=== PATIENT | female | born 1955 | race African-American/Black ===

== ENCOUNTER 2017-05-10 09:46 | Inpatient (IN) ==
[2017-05-10] MEDS ORDERED: DUONEB (A & A) INH ONE (10:27)
[2017-05-10 10:32] LABS: BASO% 0.2 % (0.0-0.8); EOS# 0.01 X1000 (0.0-0.7); EOS% 0.1 % (0.0-10.0); HEMATOCRIT 32.8 % (37.0-47.0); LYMPH# 0.65 X1000 (1.2-3.4); LYMPH% 5.8 % (20.5-51.1); MANUAL DIFF NEEDED? NO; MCH 34.7 PG (27-31); MCHC 33.5 g/dL (33-37); MCV 103.5 FL (81-99); MONO# 0.46 X1000 (0.11-0.59); MONO% 4.1 % (1.7-9.3); MPV 11.4 FL (7.4-10.4); NEUT% 89.8 % (42.2-75.2); PLT 59 X1000 (130-400); RBC 3.17 XMIL (4.2-5.4)
[2017-05-10 10:40] LABS: INR 1.05; PROTIME 11.1 Seconds (9.2-11.7)
--- NOTE | 2017-05-10 10:55 | ED EKG INTERP ---
This chart was entered by Flakita Sims Scribe, acting as scribe for Evi Marshall MD. EKG Interpretation - EKG Time of EKG reading by physician:: 09:54 EKG Read and Signed by:: Evi Marshall EKG Interpretation (*Must complete 3 of following elements*): Normal Rate: 93 (minimal voltage criteria for LVh, may be normal variant) Rhythm: NSR Attestation - Physician/ DIANA Attestation The physician spent face to face time with patient:: Yes Advanced Practice Provider documentation review:: Supervising physician onsite and consulted in the evaluation and care of this patient. The physician did have a face to face encounter with the patient. This chart was documented by the indicated scribe, (Flakita Sims Scribe) and accurately reflects the services I performed and decisions made by me, Evi Marshall MD, as attested by the provider's signature.
[2017-05-10 11:00] LABS: ALBUMIN 3.6 g/dL (3.5-5.0); CALCIUM 10.5 mg/dL (8.8-10.2); MAGNESIUM 2.3 mg/dL (1.5-2.7); POTASSIUM 3.9 mmol/L (3.5-5.1); TOTAL BILIRUBIN 0.9 mg/dL (0.20-1.00); TOTAL PROTEIN 8.3 g/dL (6.3-8.3)
--- NOTE | 2017-05-10 11:04 | Diag Imaging Result Doc PS360 ---
EXAM: CHEST-2 VIEWS HISTORY: CP TECHNIQUE: Two views COMPARISON: 07/26/2015 FINDINGS: The lungs are well expanded. The heart is not enlarged. The vessels are not distended. There are no infiltrates. No pleural effusions. No change in the right jugular portacatheter. No pneumothorax. IMPRESSION: Stable chest Electronically signed by Michael Yang 05/10/2017 11:02 AM
--- NOTE | 2017-05-10 11:12 | PROVIDER DOCUMENTATION ---
HPI-Respiratory General - General Chief Complaint: Shortness of Breath Stated Complaint: chest pain Time Seen by Provider: 05/10/17 10:10 Source: patient, family Allergies/Adverse Reactions: Patient Allergies Allergy/AdvReac Type Severity Reaction Status Date / Time lisinopril Allergy Severe Unknown Verified 01/20/15 13:39 sulfamethoxazole Allergy Severe Unknown Verified 01/20/15 13:39 [From Bactrim] trimethoprim [From Bactrim] Allergy Severe Unknown Verified 01/20/15 13:39 Sulfa (Sulfonamide Allergy Unknown Verified 01/20/15 13:39 Antibiotics) doxorubicin HCl pegylated AdvReac Intermediate RASH Verified 01/20/15 13:39 lipo... * [From Doxil] Home Medications: Home Medication List Medication Instructions Recorded Confirmed Last Taken Type ATORVAstatin [Lipitor] 20 mg PO DAILY 11/15/13 01/20/15 01/19/15 History Albuterol Sulfate [Ventolin Hfa] 90 puff IH BID 11/15/13 01/20/15 11/14/14 09: 00 History Cyclobenzaprine [Flexeril] 10 mg PO TID 11/15/13 01/20/15 01/20/15 History Dronabinol [Marinol] 2.5 mg PO BID 11/15/13 01/20/15 01/20/15 History Fluoxetine [Prozac] 20 mg PO DAILY 11/15/13 01/20/15 11/14/14 09:00 History Fluticasone/Salmet 250/50 INH 1 puff INH RTBID 11/15/13 01/20/15 11/14/14 09:00 History [Advair 250/50 Diskus] Gabapentin [Neurontin] 600 mg PO TID 11/15/13 01/20/15 01/20/15 History Insulin Human Regular [Humulin R] 100 unit SUBQ AC + HS 11/15/13 01/20/15 09:00 History Temazepam [Restoril] 15 mg PO QHS 11/15/13 01/20/15 01/19/15 History Acyclovir 400 mg PO BID 11/14/14 01/20/15 01/20/15 History Amlodipine [Norvasc] 10 mg PO DAILY 11/14/14 01/20/15 11/14/14 09:00 History Calcium Carbonate/Vitamin D3 1 each PO TID 11/14/14 01/20/15 01/20/15 History [Calcium 600 + Vit D Caplet] Cholecalciferol (Vitamin D3) 1,000 unit PO DAILY 11/14/14 01/20/15 01/20/15 History [Vitamin D3] Folic Acid 1 mg PO DAILY 11/14/14 01/20/15 01/20/15 History Nystatin 100,000 unit VG TID 11/14/14 01/20/15 01/19/15 History Phosphorus #1 [Phospha 250 Neutral 4 tab PO TID 11/14/14 01/20/15 01/20/15 History Tablet] Potassium Chloride E.r. [Klor-Con] 20 meq PO DAILY 11/14/14 01/20/15 11/14/14 09 :00 History Carvedilol 25 mg PO DAILY 01/20/15 01/20/15 01/20/15 History - History of Present Illness-Resp Nature of Presenting Problem: Pt presents to ER per family with c/o progressively worsening midsternal chest pain described as 'pressure' accompanied by some sob since last p.m. Reports pain appears to 'come and go' with no change upon exertion. No radiation. Denies diaphoresis and n/v. Also reports recent productive cough with 'green' phelgm. No known fever. Denies n/v, but reports some recent decreased appetite. HX Myeloma. Quality of Pain: reports: pressure Severity in ED: reports: moderate Onset/Duration: reports: last night Timing: reports: still present Context: reports: other (hx myeloma with recent productive cough.) Exposure: reports: other (unknown exposure) Cough Quality/Degree: reports: moderate, productive cough, other ('green') Episode Frequency: occasional episodes Current Respiratory Medication Therapy: Initiated see nurses note Modifying Factors: improves with: nothing Associated Symptoms: reports: cough (productive), shortness of breath Similar Symptoms Previously?: No Recently seen or treated by another doctor?: No Review of Systems - Adult - REVIEW OF SYSTEMS - ADULT Constitutional: reports: see HPIrobb. denies: fever Eyes: reports: no symptoms reported. denies: blurred vision, double vision Ears, Nose, Mouth & Throat: reports: no symptoms reported. denies: ear pain, nose pain, throat pain Cardiovascular: reports: see HPI, chest pain (midsternal 'pressure'). denies: orthopnea Respiratory: reports: cough (productive), shortness of breath Gastrointestinal: reports: nausea, other (decreased appetite) Genitourinary: reports: no symptoms reported. denies: dysuria, hematuria Musculoskeletal: reports: no symptoms reported. denies: bone pain, joint pain Integumentary: reports: no symptoms reported. denies: itching, rash Neurological: reports: no symptoms reported. denies: numbness, paresthesia Psychiatric: reports: no symptoms reported. denies: anxiety, emotional problems Endocrine: reports: no symptoms reported. denies: cold intolerance, heat intolerance Hematologic/Lymphatic: reports: no symptoms reported. denies: blood clots, low blood count Allergic/Immunologic: reports: no symptoms reported. denies: allergic reactions , food allergy All Other Systems: Reviewed and Negative Past History - Adult - PAST MEDICAL HISTORY-ADULT Review of Records: reports: Old Records Reviewed, Nursing Assessment Review, Medications Reviewed, Social history reviewed & non-contributory. Major Childhood Illnesses: reports: denies history Cardiovascular: reports: HTN Respiratory: reports: asthma, COPD Gastrointestinal: reports: denies history Genitourinary: reports: denies history Musculoskeletal: reports: denies history Neurological: reports: CVA, TIA Psychiatric: reports: denies history Endocrine/Immune: reports: cancer (multiple myeloma), Diabetes Other Conditions: reports: denies history - PRIOR SURGERIES/PROCEDURES Surgical/Procedure History: reports: hysterectomy, orthopedic (extremity) ( right total hip replacement), other (PAC placement) - IMMUNIZATION STATUS Childhood Immunizations: See Nurse Assessment Flu Vaccine: See Nurse Assessment - FAMILY HISTORY Family History: reviewed, not pertinent - SOCIAL HISTORY Smoking: denies Substance Use: denies Physical Exam-General - PHYSICAL EXAM-ADULT Initial Vital Signs Reviewed: Yes - CONSTITUTIONAL General Appearance: alert (aox3.), mild distress - EYES Eyes: PERRL/EOMI - HEAD, EARS, NOSE, MOUTH & THROAT HENMT: normocephalic/atraumatic, moist mucous membranes, normal ENT inspection - NECK Neck: non-tender, full range of motion, supple - RESPIRATORY Respiratory: rales (rml/right base.), rhonchi, wheezing, other (subjective c/o midsternal chest 'pressure' with no radiation.) - CARDIOVASCULAR Cardiovascular: normal peripheral pulses, regular rate, rhythm (ekg: nsr.), no edema - GASTROINTESTINAL (ABDOMEN) Abdominal Exam: normal bowel sounds, soft, tenderness (mild palpable tenderness to upper midline epigastric abdomen noted on exam. no guarding.) - LYMPHATIC Lymphatic: no adenopathy - MUSCULOSKELETAL Back Exam: normal inspection, no CVA tenderness, no vertebral tenderness Extremity: normal range of motion, non-tender Peripheral Pulses: radial (R): 4+, radial (L): 4+, dorsalis-pedis (R): 4+, dorsalis-pedis (L): 4+ - SKIN Integumentary: normal color, normal turgor, warm/dry - NEUROLOGIC Neurologic: grossly normal, no motor/sensory deficits - PSYCHIATRIC Psych/Mental Status: normal mood/affect, normal thought content, normal thought process, oriented x 3 Progress - PLAN OF CARE/RESULTS Progress/Plan/Lab Results: Vital Signs - 8 hr 05/10/17 10:10 05/10/17 11:15 05/10/17 13:23 Temperature 98.6 F Pulse Rate 84 91 H 88 Respiratory Rate 18 22 16 Blood Pressure 196/101 190/101 O2 Sat by Pulse Oximetry 100 99 100 Laboratory Results - last 24 hr 05/10/17 05/10/17 05/10/17 10:05 10:05 10:05 WBC 11.24 H RBC 3.17 L Hgb 11.0 L Hct 32.8 L MCV 103.5 H MCH 34.7 H MCHC 33.5 RDW Std Deviation 14.0 Plt Count 59 L MPV 11.4 H Neut % (Auto) 89.8 H Lymph % (Auto) 5.8 L [place] % (Auto) 4.1 Eos % (Auto) 0.1 Baso % (Auto) 0.2 Neut # (Auto) 10.10 H Lymph # (Auto) 0.65 L [place] # (Auto) 0.46 Eos # (Auto) 0.01 Baso # (Auto) 0.02 PT INR PTT (Actin FS) D-Dimer 0.63 H Sodium 139 Potassium 3.9 Chloride 104 Carbon Dioxide 27 Anion Gap 8 BUN 21 Creatinine 2.0 H Estimated GFR/1.73 m2 31 BUN/Creatinine Ratio 11 Glucose 116 H Calculated Osmolality 281 Calcium 10.5 H Magnesium 2.3 Total Bilirubin 0.90 AST 10 ALT 7 L Alkaline Phosphatase 72 Creatine Kinase 42 Troponin T Zxc-N-Ufvngdlewrn Pept Total Protein 8.3 Albumin 3.6 Globulin 4.7 Albumin/Globulin Ratio 0.8 Lipase Plasma Lactate 05/10/17 05/10/17 05/10/17 10:05 10:05 10:05 WBC RBC Hgb Hct MCV MCH MCHC RDW Std Deviation Plt Count MPV Neut % (Auto) Lymph % (Auto) [place] % (Auto) Eos % (Auto) Baso % (Auto) Neut # (Auto) Lymph # (Auto) [place] # (Auto) Eos # (Auto) Baso # (Auto) PT 11.1 INR 1.05 PTT (Actin FS) 29.0 D-Dimer Sodium Potassium Chloride Carbon Dioxide Anion Gap BUN Creatinine Estimated GFR/1.73 m2 BUN/Creatinine Ratio Glucose Calculated Osmolality Calcium Magnesium Total Bilirubin AST ALT Alkaline Phosphatase Creatine Kinase Troponin T 0.013 Ytj-Z-Munrbcpxftc Pept 9338 H Total Protein Albumin Globulin Albumin/Globulin Ratio Lipase Plasma Lactate 05/10/17 05/10/17 05/10/17 10:05 10:05 12:45 WBC RBC Hgb Hct MCV MCH MCHC RDW Std Deviation Plt Count MPV Neut % (Auto) Lymph % (Auto) [place] % (Auto) Eos % (Auto) Baso % (Auto) Neut # (Auto) Lymph # (Auto) [place] # (Auto) Eos # (Auto) Baso # (Auto) PT INR PTT (Actin FS) D-Dimer Sodium Potassium Chloride Carbon Dioxide Anion Gap BUN Creatinine Estimated GFR/1.73 m2 BUN/Creatinine Ratio Glucose Calculated Osmolality Calcium Magnesium Total Bilirubin AST ALT Alkaline Phosphatase Creatine Kinase 42 Troponin T Ipb-B-Nrkujcyitlg Pept Total Protein Albumin Globulin Albumin/Globulin Ratio Lipase 41 Plasma Lactate 1.3 05/10/17 12:45 WBC RBC Hgb Hct MCV MCH MCHC RDW Std Deviation Plt Count MPV Neut % (Auto) Lymph % (Auto) [place] % (Auto) Eos % (Auto) Baso % (Auto) Neut # (Auto) Lymph # (Auto) [place] # (Auto) Eos # (Auto) Baso # (Auto) PT INR PTT (Actin FS) D-Dimer Sodium Potassium Chloride Carbon Dioxide Anion Gap BUN Creatinine Estimated GFR/1.73 m2 BUN/Creatinine Ratio Glucose Calculated Osmolality Calcium Magnesium Total Bilirubin AST ALT Alkaline Phosphatase Creatine Kinase Troponin T < 0.010 Ems-R-Ibcajrmhbvm Pept Total Protein Albumin Globulin Albumin/Globulin Ratio Lipase Plasma Lactate Orders Category Date Time Status Cardiac Monitoring DIRECTED Care 05/10/17 10:12 Active Saline Loc NOW Care 05/10/17 10:12 Active CHEST-2 VIEWS [RAD] Stat Exams 05/10/17 10:12 Completed LUNG SCAN / VQ [NM] Stat Exams 05/10/17 12:35 Ordered BLOOD CULTURE [BLDCUL] Stat Lab 05/10/17 10:00 Received CBC WITH ELECTRONIC DIFF [HEME] Stat Lab 05/10/17 10:05 Completed CK PROFILE [SP CHEM] Stat Lab 05/10/17 10:05 Completed CK PROFILE [SP CHEM] Stat Lab 05/10/17 12:45 Completed COMPREHENSIVE METABOLIC PANEL [CHEM] Stat Lab 05/10/17 10:05 Completed D-DIMER [CHEM] Stat Lab 05/10/17 10:05 Completed LACTATE, PLASMA [CHEM] Stat Lab 05/10/17 10:05 Completed LIPASE [CHEM] Stat Lab 05/10/17 10:05 Completed MAGNESIUM [CHEM] Stat Lab 05/10/17 10:05 Completed PRO B-NATRIURETIC PEPTIDE Stat Lab 05/10/17 10:05 Completed PROTIME WITH INR [COAG] Stat Lab 05/10/17 10:05 Completed PTT [COAG] Stat Lab 05/10/17 10:05 Completed TROPONIN T Stat Lab 05/10/17 10:05 Completed TROPONIN T Stat Lab 05/10/17 12:45 Completed Albuterol 2.5MG/Ipratrop 0.5MG [Duoneb (A & A)] Med 05/10/17 10:27 Discontinued 6 ml INH NOW ONE Aerosol Treatments Routine Oth 05/10/17 10:28 Completed Aerosol Treatments Stat Oth 05/10/17 10:28 Completed EKG [EKG] Stat Ther 05/10/17 10:12 Ordered EKG [EKG] Stat Ther 05/10/17 12:37 Ordered Result Diagrams: 05/10/17 10:05 05/10/17 10:05 - CONSULTS/PCP/HOSPITALIST Notification #1 *Consult/PCP/Hospitalist*: Shireen LIN / Dr. Willoughby (Heme/Onc) Time Discussed: 12:47 (reveiwed labs and imaging studies. Recommend admission and VQ scan.) #2 Consult: Luis A LIN / Dr. Perla (Hospitalist) Time Discussed: 13:42 (Agreed c admission. Will see pt in the ER and write all orders. ) Reason/Comments: Pending VQ scan. Hospitalist service will track. Departure - Departure Date of Disposition Decision: 05/10/17 Time of Disposition Decision: 13:42 DIAGNOSIS: Shortness of breath Disposition: ADMITTED INPATIENT Certified Medical Emergency: Emergent Condition: Stable Referrals and Follow-Ups: Sheridan Alfred CRNP [Primary Care Provider] - - Critical Care Note This patient required my direct & personal management of CC.: No Attestation - Physician/ DIANA Attestation Patient care was provided by Advanced Practice Provider:: Yes Advanced Practice Provider:: Willie Hauser Advanced Practice Provider documentation review:: The Mid-level provider documentation, treatment plan and medical decision making was reviewed by the physician who agrees with all treatment and medical decision making by the MLP. The physician spent face to face time with patient:: No Advanced Practice Provider documentation review:: Supervising physician onsite and consulted in the evaluation and care of this patient. The physician did not have a face to face encounter with the patient.
[2017-05-10] MEDS ORDERED: ROCEPHIN 1 GM in NS 50 ML IV ONE (13:45)
[2017-05-10] MEDS ORDERED: ROCEPHIN ONE (13:55)
[2017-05-10] MEDS ORDERED: DUONEB (A & A) INH PRN (14:41)
[2017-05-10] MEDS ORDERED: SOLU-MEDROL IV ONE (14:42)
[2017-05-10] MEDS ORDERED: PROTONIX IV SCH (14:45)
[2017-05-10] MEDS ORDERED: SODIUM CHLORIDE 0.9% INJ SCH (14:45)
[2017-05-10] MEDS ORDERED: ZOFRAN IV PRN (15:16)
[2017-05-10] MEDS ORDERED: TEARISOL OPH SOLUTION BOTH EYES PRN (15:45)
[2017-05-10] MEDS: DUONEB (A & A) INH SCH ×3 (15:57→22:46)
[2017-05-10] MEDS: NICODERM PATCH TD SCH (16:07)
[2017-05-10] MEDS: LOVENOX SUBQ SCH (16:13)
[2017-05-10] MEDS ORDERED: APRESOLINE IV PRN (16:19)
[2017-05-10] MEDS ORDERED: PHENERGAN PO PRN (16:22)
[2017-05-10] MEDS: KLOR-CON PO SCH (17:24)
[2017-05-10] MEDS: FLEXERIL PO SCH (17:24)
[2017-05-10] MEDS: NORCO-10 PO PRN (17:24)
[2017-05-10] MEDS: NEURONTIN PO SCH (20:33)
[2017-05-10] MEDS ORDERED: LIPITOR PO SCH (21:00)
[2017-05-11] MEDS: NORCO-10 PO PRN (00:35)
[2017-05-11 01:46] LABS: BILIRUBIN URINE NEGATIVE (NEGATIVE); BLOOD URINE SMALL (NEGATIVE); COLOR YELLOW; GLUCOSE URINE TRACE mg/dL (NEGATIVE); LEUKOCYTES URINE NEGATIVE (NEGATIVE); NITRITE URINE NEGATIVE (NEGATIVE); PROTEIN URINE 600 mg/dL (NEGATIVE); SP GRAVITY URINE 1.018; TURBIDITY URINE CLEAR (CLEAR); URINE CULTURE NEEDED? NO; URINE MICRO REVIEW NEEDED? NO; UROBILINOGEN URINE NORMAL (NORMAL)
[2017-05-11 01:47] LABS: UR EPITHELIAL CELLS >10 /HPF (<10); URINE BACTERIA NEGATIVE /HPF; URINE RBC <10 /HPF (<10); URINE SOURCE CLEAN CATCH; URINE WBC <10 /HPF (<10)
[2017-05-11 02:14] LABS: UR AMPHETAMINES QUAL NONE DETECTED (NONE DETECT); UR BARBITUATES QUAL NONE DETECTED (NONE DETECT); UR BENZODIAZEPIN QUAL NONE DETECTED (NONE DETECT); UR CANNABINOIDS QUAL PRESUMPTIVE POSITIVE (NONE DETECT); UR COCAINE QUAL NONE DETECTED (NONE DETECT); UR METHADONE QUAL NONE DETECTED (NONE DETECT); UR OPIATES QUAL PRESUMPTIVE POSITIVE (NONE DETECT); UR OXYCODONE QUAL NONE DETECTED (NONE DETECT); UR PCP QUAL NONE DETECTED (NONE DETECT)
[2017-05-11] MEDS: DUONEB (A & A) INH SCH ×3 (04:00→13:00)
[2017-05-11] MEDS: LOVENOX SUBQ SCH (06:12)
[2017-05-11 07:06] LABS: HEMATOCRIT 31.8 % (37.0-47.0); HEMOGLOBIN 10.7 g/dL (12.0-16.0); LYMPH# 0.76 X1000 (1.2-3.4); LYMPH% 7.3 % (20.5-51.1); MANUAL DIFF NEEDED? YES; MCH 34.1 PG (27-31); MCHC 33.6 g/dL (33-37); MCV 101.3 FL (81-99); MONO# 0.21 X1000 (0.11-0.59); MPV 11.7 FL (7.4-10.4); NEUT% 90.7 % (42.2-75.2); PLT 71 X1000 (130-400); RBC 3.14 XMIL (4.2-5.4)
[2017-05-11 07:15] LABS: HEMOGLOBIN A1C 5.1 % (4.8-6.0)
[2017-05-11 07:23] LABS: FERRITIN 1474 ng/mL (13-150)
[2017-05-11 07:24] LABS: AGAP 13; BUN 27 mg/dL (8-22); CALCIUM 10.6 mg/dL (8.8-10.2); CHLORIDE 108 mmol/L (98-107); COSMO 289; HDL 31 mg/dL (45-65); IRON SATURATION 20 %; LDL 67 mg/dL; SODIUM 141 mmol/L (136-145); TCO2 20 mmol/L (25-35); TIBC 236 ug/dL; TOTAL IRON 47 ug/dL (49-151); TRIGLYCERIDES 72 mg/dL (35-135); UNBOUND IRON 189 ug/dL (112-346); VLDL 14 mg/dL
[2017-05-11 07:26] LABS: BANDS 8 % (0-1); LYMPHS 6 % (21-51); MONO 2 % (1-9)
[2017-05-11] MEDS: PATIENT'S OWN MED PO SCH ×2 (07:46→10:23)
[2017-05-11] MEDS ORDERED: SOLU-MEDROL IV SCH (08:00)
--- NOTE | 2017-05-11 08:46 | HISTORY AND PHYSICAL ---
ONCOLOGIST: Dr. James Willoughby. CHIEF COMPLAINT: Chest pain. HISTORY OF PRESENT ILLNESS: Ms. Noguera is a 61-year-old, female with a history of COPD, multiple myeloma on chemotherapy, hypertension, type 2 diabetes, chronic kidney disease, chronic anemia, who presents with chest pain. The pain started last night at rest. She reports epigastric pain that is dull, nonradiating, and constant. She has mild shortness of breath. No nausea or vomiting. No diaphoresis. She has been coughing and wheezing with green sputum production and cough but she denies any fever. She also complains of some right foot pain and swelling. She reports her last chemotherapy treatment was on the and is due again on the . She denies any overt abdominal pain, nausea, vomiting or diarrhea. No dysuria. No melena, hematemesis, weight loss, or any other acute abnormality. When she got to the ER today, she had labs and diagnostics done. EKG did show some mild LVH but otherwise sinus rhythm with no acute ST or T abnormalities. Her lab data shows a creatinine of 2. ProBNP of 9338. Troponin negative. Her hematology does show some mild leukocytosis and anemia. Currently, she is comfortable and resting in bed without acute distress. On physical exam, she does have very specific point tenderness over her left chest that is clearly reproducible. She is now going to be admitted for further treatment and evaluation. PAST MEDICAL HISTORY: 1. Multiple myeloma on chemotherapy, followed by Dr. Willoughby. 2. COPD, on oxygen at night. 3. CKD, baseline GFR unknown. 4. History of TIAs. 5. Type 2 diabetes. 6. Chronic anemia. 7. Hypertension. 8. Nicotine dependence. SURGICAL HISTORY: She has had a Port-A-Cath placement, right hip replacement, hysterectomy, bilateral axillary abscesses excised. SOCIAL HISTORY: She lives with her son. She is . She smokes about a pack a day. She denies alcohol or illicit drug use. FAMILY HISTORY: Her mother has a history of pancreatic cancer and diabetes. ALLERGIES: To lisinopril, sulfamethoxazole, trimethoprim, sulfa drugs, and doxorubicin. HOME MEDICATIONS: Phenergan 25 mg p.o. every 6-8 hours, KCl 20 mEq p.o. t.i.d. , phosphorus #1 500 mg t.i.d., magnesium oxide, turmeric 1 daily, [place] 10 one every 6 hours as needed for pain, Neurontin 600 mg p.o. t.i.d., folic acid 1 mg p.o. daily, Prozac 20 mg daily, Marinol 2.5 mg p.o. b.i.d., Flexeril 10 mg p.o. t.i.d., vitamin D3 1000 units p.o. daily, carvedilol 25 mg daily, calcium 500 mg daily, Norvasc 10 mg daily, atorvastatin 20 mg at bedtime. REVIEW OF SYSTEMS: Fourteen-point review of systems obtained and found to be negative with the exception of the HPI. PHYSICAL EXAMINATION: VITAL SIGNS: Blood pressure is 190/101, heart rate is 88, respiratory rate 16, O2 saturation 100% on room air. Temperature 98.6 degrees. GENERAL: This is a chronically ill-appearing, 61-year-old, female, lying in the hospital bed in no acute distress. NEUROLOGIC: The patient is awake and alert. She follows commands without focal deficits. HEENT: Head is atraumatic and normocephalic. Her pupils are equal, round, and reactive to light. Oral mucosa is moist. Trachea is midline. No JVD. CHEST: Upper lobe wheezing bilaterally. CV: Regular rate and rhythm. S1 and S2 are noted. No murmurs. GI: Soft, nondistended, nontender. Bowel sounds are positive. She does have point tenderness to the left chest. EXTREMITIES: No edema, clubbing, or cyanosis. Pulses palpable bilaterally. DIAGNOSTIC DATA: Chest x-ray is negative. EKG, sinus rhythm with LVH. WBC 11.24, hemoglobin 11, hematocrit 32.8, MCV 103.5, platelet count 59,000. INR 1.05, D-dimer 0.63. Sodium 139, potassium 3.9, chloride 104, CO2 27, anion gap 8, BUN 21, creatinine 2, glucose 116, calcium 10.5, magnesium 2.3. Total bilirubin 0.9, AST 10, ALT 7, alkaline phosphatase 72. CKs are negative. ProBNP 9338. Albumin 3.6, lipase 41, lactic acid 1.3. ASSESSMENT/PLAN: 1. Chest pain: Atypical, bordering on noncardiac. She does have reproducible pain to palpation. However, she has risk factors for coronary artery disease. We are going to check an echocardiogram and rule out myocardial infarction with cardiac enzymes. We will make sure she is on aspirin and statin. Of course, if her enzymes become elevated, we will consult cardiology. 2. Chronic obstructive pulmonary disease exacerbation: Continue breathing treatments, steroids, nebulizers, and antibiotics. Chest x-ray is negative. 3. Elevated D-dimer: Emergency room has ordered a V/Q scan as she has a creatinine of 2. However, pulmonary embolism is unlikely. 4. Chronic kidney disease: Creatinine is just slightly above baseline. We will continue fluids, and check urinalysis and electrolytes. 5. Multiple myeloma: We will consult Dr. Willoughby for further treatment and evaluation. 6. Macrocytic anemia: Iron studies are pending. 7. Nicotine dependence: A nicotine patch has been ordered. We will continue that and continue daily cessation education. 8. Diabetes mellitus: Patient is not on any home medications for diabetes. We will check a hemoglobin A1c and go from there. Her blood sugar is 116. 9. Elevated proBNP: Patient does not have any symptoms of congestive heart failure. However, again, she has risk factors. We will check an echocardiogram and treat accordingly. 10. Deep vein thrombosis prophylaxis with low-dose Lovenox. 11. Further recommendations to follow. Patient seen and examined by me face to face, all the laboratory , vitals signs and and images were reviewed, on my physical exam this patient has chest pain to palpation but given her multiple comorbidities we need to rule out and acute coronary disease, I will follow cardiac enzymes, and Echo, I agree with the assessment and plan, Omid Aguilar MD Dictated by DELIA Ulrich for Omid Juarez MD cc: DELIA Ulrich MD [facility]
[2017-05-11] MEDS ORDERED: FOLIC ACID PO SCH (09:00)
[2017-05-11] MEDS ORDERED: NORVASC PO SCH (09:00)
[2017-05-11] MEDS ORDERED: TUMS PO SCH (09:00)
[2017-05-11] MEDS ORDERED: COREG PO SCH (09:00)
[2017-05-11] MEDS ORDERED: ASPIRIN PO SCH (09:00)
[2017-05-11] MEDS ORDERED: PROZAC PO SCH (09:00)
[2017-05-11] MEDS ORDERED: VITAMIN D PO SCH (09:00)
[2017-05-11] MEDS ORDERED: PATIENT'S OWN MED PO SCH (09:00)
--- NOTE | 2017-05-11 09:08 | Diag Imaging Result Doc PS360 ---
EXAM: LUNG SCAN / VQ HISTORY: sob, elevated ddimer, elevated creatinine TECHNIQUE: 36.7 mCi DTPA dilated followed by 6.4 mCi MAA IV perfused COMPARISON: Compared to 05/10/2017 FINDINGS: There are patchy areas of decreased perfusion, but there are no wedged shaped perfusion defects. Ventilation images are quite similar to that of the perfusion images. No ventilation/perfusion mismatches. IMPRESSION: Low probability for a pulmonary embolus Electronically signed by Michael Yang 05/11/2017 9:06 AM
[2017-05-11] MEDS: NEURONTIN PO SCH (09:29)
[2017-05-11] MEDS: FLEXERIL PO SCH (09:29)
[2017-05-11] MEDS: NICODERM PATCH TD SCH (09:29)
[2017-05-11] MEDS: KLOR-CON PO SCH (09:29)
[2017-05-11 13:48] VITALS: BP 154/65
--- NOTE | 2017-05-11 14:28 | DISCHARGE SUMMARY ---
ADMISSION DATE: 05/10/2017 DISCHARGE DATE: This is a patient of Dr. James Willoughby. She was admitted by Sheridan Alfred, HEMA, that is her family doctor. Admitted by the hospitalist here. Mrs. Noguera is a 61-year-old female with a history of COPD, multiple myeloma on chemotherapy, hypertension, diabetes mellitus type 2, chronic kidney disease, chronic anemia, who presented with chest pain. The patient started the night before or that night of admission. She reports epigastric pain that was dull, nonradiating and constant. She had mild shortness of breath. No nausea or vomiting. No diaphoresis. She has been coughing and wheezing and giving some sputum production cough. She denies any fever. She also complains of some right foot pain and swelling. Reports that chemotherapy treatment was on the of this month and due again on the . Denies any overt abdominal pain, nausea, vomiting, diarrhea. No dysuria, no melena, hematemesis, weight loss or any other acute abnormality. When she got to the ER she had labs and diagnostic done. EKG showed mild LVH but no ST-segment changes or T-wave abnormalities. Creatinine was 2, proBNP 9338, troponin was negative. The chest pain resolved. She felt like the chest pain may have been due to stress. She has a couple birthdays she is getting ready for. Her V/Q scan was low probability. She is breathing comfortably, did not require any O2, and wanted to go home. So we will let her go home. Review of her lab: Hematocrit was 31, stable. Chemistries looked good. Creatinine 2.0. However I see back in January 2015 it was 1.3 but her last on 07/26/2015 it was 1.9 and on 05/10 it was 2.0, so she may have just some chronic renal insufficiency or chronic kidney disease. We will discharge her home and will place her on her previous medications. Follow up with Dr. Willoughby. MEDICATIONS: 1. Lipitor 20 mg a day. 2. Norvasc 10 mg a day. 3. Calcium 500 mg a day. 4. Carvedilol 25 mg a day. 5. Vitamin D 3 1000 mg a day. 6. Flexeril 10 mg 3 times a day. 7. Marinol 2.5 mg b.i.d. p.r.n. 8. Prozac 20 mg a day. 9. Folic acid 1 mg a day. 10. Gabapentin 600 mg 3 times a day. 11. Hydrocodone 10/325 q.6 hours p.r.n. 12. Magnesium oxide 400 mg 3 times a day. 13. Phosphorus tablet 250 natural tablet 500 mg 3 times a day. 14. Potassium chloride 20 mEq 3 times a day. 15. Phenergan 25 mg q.6-8 hours p.r.n. cc: Favio Brownlee MD
--- NOTE | 2017-05-11 15:51 | ECHO REPORT ---
ORDER DATE: 05/10/2017 ECHOCARDIOGRAPHIC MEASUREMENTS: 1. Interventricular septum 1.2. 2. Left ventricular posterior wall 1.1. 3. Diastolic diameter 3.1, left atrium 4, aorta 3.3. Normal left ventricular cavity size. Estimated ejection fraction of 60%. 4. Aortic valve leaflets are sclerosed, trileaflet. 5. Mitral valve was normal. Tricuspid valve was normal. 6. There is mild mitral regurgitation. Mild tricuspid regurgitation. Peak velocity across the tricuspid valve was 2.5 m/sec. 7. There is mild pulmonary regurgitation. 8. There is left atrial enlargement. 9. Peak velocity across the aortic valve was 3 m/sec, more suggestive of aortic sclerosis rather than stenosis. 1. There is mild aortic regurgitation. 2. There is no pericardial effusion or obvious intracardiac mass or thrombus seen. cc: MD Bipin Villaseñor CRNP
--- NOTE | 2017-05-12 06:53 | EKG Report ---
Test Performed on : 05/10/2017 09:54:11 AM Test Reason : reordered Blood Pressure : / mmHG Vent. Rate : 093 BPM Atrial Rate : 093 BPM P-R Int : 162 ms QRS Dur : 086 ms QT Int : 336 ms P-R-T Axes : 079 020 057 degrees QTc Int : 417 ms Normal sinus rhythm. Minimal voltage criteria for LVH, may be normal variant Borderline ECG When compared with ECG of 20-JAN-2015 13:59, No significant change was found Unconfirmed Result
== END 2017-05-11 15:36 | disposition home or self-care (01) ==
LOC: ED 09:46 → SUATTDRO 14:58 → 3N 14:58
PROVIDERS: ATTEND Emergency Medicine